=== PATIENT | male | born 1935 | race Caucasian/White ===

== ENCOUNTER 2017-01-30 10:03 | Observation (INO) | payer MEDICARE, OTHER ==
[2017-01-30] MEDS ORDERED: Sodium Chloride 0.9% 1,000 ML IV ONE (10:35)
[2017-01-30 10:43] LABS: CHLORIDE,CL 101 mmol/L (98-107); SODIUM,NA 140 mmol/L (136-145)
--- NOTE | 2017-01-30 10:47 | EDM.PDOC ---
ED HPI GENERAL MEDICAL PROBLEM - General Chief Complaint: Neuro Symptoms/Deficits Stated Complaint: nausea, vomiting, dizzyness Time Seen by Provider: 01/30/17 10:10 Source of Information: Reports: Patient, Family () History Limitations: Reports: No Limitations - History of Present Illness INITIAL COMMENTS - FREE TEXT/NARRATIVE: Patient is a 82-year-old who had gone this morning to [employer] and while in [employer] he felt like the pew was doing like a see saw. he got up and left he went to the bookkeeper receptionist area and sat down and was trying to vomit but only had a small emesis coffee color particles. Patient was also diaphoretic and dizzy at that time patient was seen by Justin COYLE and told the family to bring him to the emergency room while in the emergency room patient was very dizzy his tongue was deviated to the left and he was diaphoretic a stat CT was done which appears to have no intracranial bleed by myself radiology report pending at this time patient is recovering quite fast he had none of he had no drift he was alert and oriented strength was equal bilaterally at present time he feels rundown as a dull feeling in the frontal area of his head bilaterally running down towards his nose but seems to have been recovering his NIH scale at present time is 0 the original one was done about 10 minutes ago and this was also 0. Onset: Today, Sudden Duration: Minutes:, Improving Location: Reports: Head, Generalized Quality: Reports: Dull, Pressure (Forehead) Severity: Severe (Question stroke) Improves with: Reports: Rest Worsens with: Reports: Movement Context: Reports: Sick Contact Associated Symptoms: Reports: Diaphoresis, Headaches, Nausea/Vomiting, Weakness - Related Data Allergies Allergy/AdvReac Type Severity Reaction Status Date / Time No Known Allergies Allergy Verified 01/30/17 10:45 Home Meds: Home Meds Aspirin [Halfprin] 81 mg PO BRK 01/30/17 [History] Budesonide [Pulmicort] 4 ml IH BID 01/30/17 [History] Chlorthalidone 25 mg PO DAILY 01/30/17 [History] Finasteride [Finasteride] 5 mg PO DAILY 01/30/17 [History] Quinapril HCl [Accupril] 40 mg PO DAILY 01/30/17 [History] Simvastatin [Zocor] 40 mg PO DAILY 01/30/17 [History] Sotalol HCl [Betapace] 120 mg PO DAILY 01/30/17 [History] ED ROS GENERAL - Review of Systems Review Of Systems: See Below Constitutional: Reports: Weakness, Diaphoresis HEENT: Reports: Glasses, Vertigo Respiratory: Reports: No Symptoms Cardiovascular: Reports: Lightheadedness Endocrine: Reports: No Symptoms GI/Abdominal: Reports: Nausea, Vomiting : Reports: No Symptoms Musculoskeletal: Reports: No Symptoms Skin: Reports: No Symptoms Neurological: Reports: Dizziness, Difficulty Walking, Weakness Psychiatric: Reports: No Symptoms ED EXAM, GENERAL - Physical Exam Exam: See Below Exam Limited By: No Limitations General Appearance: Alert, WD/WN, Mild Distress Eye Exam: Bilateral Eye: EOMI, PERRL Ears: Hearing Grossly Normal Nose: Normal Inspection, Normal Mucosa, No Blood Head: Atraumatic, Normocephalic Neck: Normal Inspection, Supple, Non-Tender, Full Range of Motion Respiratory/Chest: No Respiratory Distress, Lungs Clear, Normal Breath Sounds, No Accessory Muscle Use, Chest Non-Tender Cardiovascular: Systolic Murmur, Irregularly Irregular, Other (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 No: No Murmur GI/Abdominal: Normal Bowel Sounds, Soft, Non-Tender, No Organomegaly, No Distention, No Abnormal Bruit, No Mass (Male) Exam: Deferred Rectal (Males) Exam: Deferred Back Exam: Normal Inspection, Full Range of Motion, NT Extremities: Normal Inspection, Normal Range of Motion, Non-Tender, Normal Capillary Refill, No Pedal Edema Neurological: Alert, Oriented, CN II-XII Intact, Normal Cognition, Normal Gait, Normal Reflexes, No Motor/Sensory Deficits Psychiatric: Normal Affect, Normal Mood Skin Exam: Warm, Dry, Intact, Normal Color, No Rash Course - Vital Signs Last Recorded V/S: Last Vital Signs Temp 97.2 F 01/30/17 10:05 Pulse 96 01/30/17 10:05 Resp 20 01/30/17 10:05 BP 175/105 H 01/30/17 10:05 Pulse Ox 99 01/30/17 10:05 - Orders/Labs/Meds Orders: Active Orders 24 hr Category Date Time Status Head wo Cont [CT] Routine Exams 01/30/17 Taken Labs: Laboratory Tests 01/30/17 01/30/17 01/30/17 Range/Units 10:15 10:15 10:15 WBC 7.3 (4.0-10.2) K/uL RBC 4.28 L (4.33-5.41) M/uL Hgb 13.8 (13.1-16.8) g/dL Hct 40.8 (39.0-49.0) % MCV 95.3 (84.0-98.0) fL MCH 32.2 (28.2-33.3) pg MCHC 33.8 (31.7-36.0) g/dL RDW 13.0 (11.2-14.1) % Plt Count 228 (150-350) K/uL Neut % (Auto) 58.4 (45.0-80.0) % Lymph % (Auto) 24.1 (10.0-50.0) % Barry % (Auto) 14.6 H (2.0-14.0) % Eos % (Auto) 2.6 (0.0-5.0) % Baso % (Auto) 0.3 (0.0-2.0) % Neut # (Auto) 4.23 (1.40-7.00) K/uL Lymph # (Auto) 1.75 (0.50-3.50) K/uL Barry # (Auto) 1.06 H (0.00-1.00) K/uL Eos # (Auto) 0.19 (0.00-0.50) K/uL Baso # (Auto) 0.02 (0.00-0.20) K/uL PT 22.7 H D (9.8-11.7) SEC INR 2.0 APTT 32.9 H (23.5-30.0) SEC D-Dimer, Quantitative < 100 (0-400) ng/mL Sodium (136-145) mmol/L Potassium (3.5-5.1) mmol/L Chloride (98-107) mmol/L Carbon Dioxide (21.0-32.0) mmol/L BUN (7-18) mg/dL Creatinine (0.51-1.17) mg/dL Est Cr Clr Drug Dosing Estimated GFR (MDRD) mL/min Glucose (74-106) mg/dL Calcium (8.5-10.1) mg/dL Total Bilirubin (0.2-1.0) mg/dL AST (15-37) U/L ALT (12-78) U/L Alkaline Phosphatase (46-116) IU/L Troponin I (0.000-0.056) ng/mL Total Protein (6.4-8.2) g/dL Albumin (3.4-5.0) g/dL 01/30/17 Range/Units 10:15 WBC (4.0-10.2) K/uL RBC (4.33-5.41) M/uL Hgb (13.1-16.8) g/dL Hct (39.0-49.0) % MCV (84.0-98.0) fL MCH (28.2-33.3) pg MCHC (31.7-36.0) g/dL RDW (11.2-14.1) % Plt Count (150-350) K/uL Neut % (Auto) (45.0-80.0) % Lymph % (Auto) (10.0-50.0) % Barry % (Auto) (2.0-14.0) % Eos % (Auto) (0.0-5.0) % Baso % (Auto) (0.0-2.0) % Neut # (Auto) (1.40-7.00) K/uL Lymph # (Auto) (0.50-3.50) K/uL Barry # (Auto) (0.00-1.00) K/uL Eos # (Auto) (0.00-0.50) K/uL Baso # (Auto) (0.00-0.20) K/uL PT (9.8-11.7) SEC INR APTT (23.5-30.0) SEC D-Dimer, Quantitative (0-400) ng/mL Sodium 140 (136-145) mmol/L Potassium 3.0 L (3.5-5.1) mmol/L Chloride 101 (98-107) mmol/L Carbon Dioxide 29.2 (21.0-32.0) mmol/L BUN 20 H (7-18) mg/dL Creatinine 1.18 H (0.51-1.17) mg/dL Est Cr Clr Drug Dosing TNP Estimated GFR (MDRD) 59 mL/min Glucose 167 H (74-106) mg/dL Calcium 8.8 (8.5-10.1) mg/dL Total Bilirubin 1.4 H (0.2-1.0) mg/dL AST 23 (15-37) U/L ALT 20 (12-78) U/L Alkaline Phosphatase 70 (46-116) IU/L Troponin I 0.000 (0.000-0.056) ng/mL Total Protein 7.5 (6.4-8.2) g/dL Albumin 3.9 (3.4-5.0) g/dL Departure - Departure Time of Disposition: 12:22 Disposition: Refer to Observation Condition: Fair Clinical Impression: TIA (transient ischemic attack) - Discharge Information Forms: ED Department Discharge - Problem List & Annotations (1) Syncopal vertigo SNOMED Code(s): 794931974 Code(s): R55 - SYNCOPE AND COLLAPSE; R42 - DIZZINESS AND GIDDINESS Status: Acute Annotation/Comment:: Patient will be admitted for observation and workup including telemetry echocardiogram and observation (2) TIA (transient ischemic attack) SNOMED Code(s): 957807272 Code(s): G45.9 - TRANSIENT CEREBRAL ISCHEMIC ATTACK, UNSPECIFIED Status: Acute - Problem List Review Problem List Initiated/Reviewed/Updated: Yes - My Orders Last 24 Hours: My Active Orders 01/30/17 Head wo Cont [CT] Routine - Assessment/Plan Last 24 Hours: My Active Orders 01/30/17 Head wo Cont [CT] Routine
[2017-01-30] MEDS ORDERED: Warfarin 2 MG Tab PO SCH (20:00)
[2017-01-30] MEDS ORDERED: Simvastatin 20 MG Tab PO SCH (20:00)
[2017-01-31] MEDS ORDERED: QUINAPRIL 40 MG PO SCH (08:00)
[2017-01-31] MEDS ORDERED: Finasteride 5 MG Tab PO SCH (08:00)
[2017-01-31] MEDS ORDERED: Chlorthalidone 25 MG Tab PO SCH (08:00)
[2017-01-31] MEDS ORDERED: Simvastatin 20 MG Tab PO SCH (08:00)
[2017-01-31] MEDS ORDERED: SIMVASTATIN 40 MG PO SCH (08:00)
[2017-01-31] MEDS ORDERED: Aspirin 81 MG Tab.EC PO SCH (08:00)
[2017-01-31] MEDS ORDERED: Sotalol 80 MG Tab PO SCH ×2 (08:00)
[2017-01-31] MEDS ORDERED: Budesonide 0.5 MG/2 ML Neb Susp NEB SCH (08:00)
[2017-01-31 08:01] LABS: CHLORIDE,CL 103 mmol/L (98-107); SODIUM,NA 140 mmol/L (136-145)
--- NOTE | 2017-01-31 11:12 | PCM.DCSUM1 ---
Discharge Summary - Hospital Course Free Text/Narrative:: And admitted to the hospital secondary to a near syncopal episode at [facility] patient worked up including troponins which were negative at this time patient is doing much better we'll continue with workup Cardilate stress test echocardiogram and carotid ultrasound will try to get as much as we can now and the rest as an outpatient Brief History: Patient is a 82-year-old was admitted with near syncopal episode while in [facility] he noticed that the room was going in circles and his pedal was doing like a seesaw he walked out and waited in the waiting area for his Justin Patel the PA was there and told him to go to the hospital patient was loaded up in the car and brought to the hospital at this time patient admitted and worked up for cardiac events which were all negative proceed with outpatient workup - Discharge Data Discharge Date: 01/31/17 Discharge Disposition: Home, Self-Care 01 Condition: Good - Discharge Diagnosis/Problem(s) (1) Syncopal vertigo SNOMED Code(s): 476491903 ICD Code: R55 - SYNCOPE AND COLLAPSE; R42 - DIZZINESS AND GIDDINESS Status : Acute Current Visit: Yes Problem Details: Patient seen today doing much better we'll discharge home with orders for cardiac echo carotid ultrasound and Cardiolite stress test (2) TIA (transient ischemic attack) SNOMED Code(s): 181243300 ICD Code: G45.9 - TRANSIENT CEREBRAL ISCHEMIC ATTACK, UNSPECIFIED Status: Acute Current Visit: Yes - Patient Instructions Diet: Heart Healthy Diet Activity: Rest and Relax Today Driving: Do Not Drive (May drive tomorrow) Showering/Bathing: May Shower - Discharge Plan Home Medications: Home Meds Aspirin [Halfprin] 81 mg PO BRK 01/30/17 [History] Budesonide [Pulmicort] 4 ml IH BID 01/30/17 [History] Chlorthalidone 25 mg PO DAILY 01/30/17 [History] Finasteride [Finasteride] 5 mg PO DAILY 01/30/17 [History] Multivitamin [Multiple Vitamins] 1 each PO 01/30/17 [History] Quinapril HCl [Accupril] 40 mg PO DAILY 01/30/17 [History] Simvastatin [Zocor] 40 mg PO DAILY 01/30/17 [History] Sotalol [Betapace] 40 mg PO DAILY 01/30/17 [History] Ubidecarenone [Coq10] 100 mg PO DAILY 01/30/17 [History] Warfarin Sodium [Coumadin] 4 mg PO DAILY 01/30/17 [History] Forms: ED Department Discharge Referrals: PCP,Unknown [Primary Care Provider] - - General Info Date of Service: 01/31/17 - Review of Systems General: Reports: No Symptoms HEENT: Reports: No Symptoms Pulmonary: Reports: No Symptoms Cardiovascular: Reports: No Symptoms Gastrointestinal: Reports: No Symptoms Genitourinary: Reports: No Symptoms Musculoskeletal: Reports: No Symptoms Skin: Reports: No Symptoms Neurological: Reports: No Symptoms Psychiatric: Reports: No Symptoms - Patient Data Vitals - Most Recent: Last Vital Signs Temp 97.4 F 01/31/17 08:00 Pulse 66 01/31/17 08:56 Resp 17 01/31/17 08:00 BP 132/95 H 01/31/17 08:56 Pulse Ox 97 01/31/17 08:00 Weight - Most Recent: 194 lb 0.003 oz I&O - Last 24 hours: Intake & Output 01/30/17 01/31/17 01/31/17 22:59 06:59 14:59 Intake Total 520 Balance 520 Lab Results - Last 24 hrs: Laboratory Results - last 24 hr 01/30/17 01/31/17 01/31/17 Range/Units 22:00 07:05 07:05 WBC 6.9 (4.0-10.2) K/uL RBC 3.96 L (4.33-5.41) M/uL Hgb 12.8 L (13.1-16.8) g/dL Hct 38.4 L (39.0-49.0) % MCV 97.0 (84.0-98.0) fL MCH 32.3 (28.2-33.3) pg MCHC 33.3 (31.7-36.0) g/dL RDW 13.0 (11.2-14.1) % Plt Count 198 (150-350) K/uL Neut % (Auto) 67.8 (45.0-80.0) % Lymph % (Auto) 16.5 (10.0-50.0) % Cole % (Auto) 13.6 (2.0-14.0) % Eos % (Auto) 2.0 (0.0-5.0) % Baso % (Auto) 0.1 (0.0-2.0) % Neut # (Auto) 4.66 (1.40-7.00) K/uL Lymph # (Auto) 1.14 (0.50-3.50) K/uL Cole # (Auto) 0.94 (0.00-1.00) K/uL Eos # (Auto) 0.14 (0.00-0.50) K/uL Baso # (Auto) 0.01 (0.00-0.20) K/uL Sodium 140 (136-145) mmol/L Potassium 3.3 L (3.5-5.1) mmol/L Chloride 103 (98-107) mmol/L Carbon Dioxide 29.7 (21.0-32.0) mmol/L BUN 14 (7-18) mg/dL Creatinine 1.05 (0.51-1.17) mg/dL Est Cr Clr Drug Dosing 60.65 mL/min Estimated GFR (MDRD) > 60 mL/min Glucose 112 H (74-106) mg/dL Calcium 8.7 (8.5-10.1) mg/dL Troponin I 0.013 (0.000-0.056) ng/mL 01/31/17 Range/Units 07:05 WBC (4.0-10.2) K/uL RBC (4.33-5.41) M/uL Hgb (13.1-16.8) g/dL Hct (39.0-49.0) % MCV (84.0-98.0) fL MCH (28.2-33.3) pg MCHC (31.7-36.0) g/dL RDW (11.2-14.1) % Plt Count (150-350) K/uL Neut % (Auto) (45.0-80.0) % Lymph % (Auto) (10.0-50.0) % Cole % (Auto) (2.0-14.0) % Eos % (Auto) (0.0-5.0) % Baso % (Auto) (0.0-2.0) % Neut # (Auto) (1.40-7.00) K/uL Lymph # (Auto) (0.50-3.50) K/uL Cole # (Auto) (0.00-1.00) K/uL Eos # (Auto) (0.00-0.50) K/uL Baso # (Auto) (0.00-0.20) K/uL Sodium (136-145) mmol/L Potassium (3.5-5.1) mmol/L Chloride (98-107) mmol/L Carbon Dioxide (21.0-32.0) mmol/L BUN (7-18) mg/dL Creatinine (0.51-1.17) mg/dL Est Cr Clr Drug Dosing mL/min Estimated GFR (MDRD) mL/min Glucose (74-106) mg/dL Calcium (8.5-10.1) mg/dL Troponin I 0.015 (0.000-0.056) ng/mL Med Orders - Current: Current Medications Aspirin (Halfprin) 81 mg PO BRK [facility] Last Admin: 01/31/17 09:00 Dose: Not Given Budesonide (Pulmicort) 0.5 mg NEB BIDRT [facility] Last Admin: 01/31/17 09:00 Dose: Not Given Chlorthalidone (Chlorthalidone) 25 mg PO DAILY [facility] Last Admin: 01/31/17 08:58 Dose: 25 mg Finasteride (Proscar) 5 mg PO DAILY [facility] Last Admin: 01/31/17 08:57 Dose: 5 mg Quinapril 40mg Tabs 1 each PO DAILY [facility] Last Admin: 01/31/17 08:57 Dose: 1 each Simvastatin 40mg (Tabs) 1 each PO DAILY [facility] Last Admin: 01/31/17 08:58 Dose: 1 each Warfarin 4mg Tabs 1 each PO DAILY@1800 [facility] Sotalol HCl (Betapace) 40 mg PO DAILY [facility] Last Admin: 01/31/17 08:56 Dose: 40 mg Discontinued Medications Quinapril HCl (Accupril) 40 mg PO DAILY [facility] Last Admin: 01/31/17 09:46 Dose: Not Given Simvastatin (Zocor) 40 mg PO DAILY [facility] Last Admin: 01/31/17 09:46 Dose: Not Given Sotalol HCl (Betapace) 120 mg PO DAILY [facility] Last Admin: 01/31/17 09:46 Dose: Not Given Warfarin Sodium (Coumadin) 4 mg PO DAILY [facility] Warfarin Sodium (Coumadin) 4 mg PO DAILY@1800 [facility] - Exam General: Reports: Alert, Oriented HEENT: Reports: Pupils Equal, Pupils Reactive, EOMI, Mucous Membr. Moist/[place] Neck: Reports: Supple Lungs: Reports: Clear to Auscultation, Normal Respiratory Effort Cardiovascular: Reports: Regular Rate, Regular Rhythm GI/Abdominal Exam: Normal Bowel Sounds, Soft, Non-Tender, No Organomegaly, No Distention, No Abnormal Bruit, No Mass, Pelvis Stable Rectal (Males) Exam: Deferred Back Exam: Reports: Normal Inspection, Full Range of Motion Extremities: Normal Inspection, Normal Range of Motion, Non-Tender, No Pedal Edema, Normal Capillary Refill Skin: Reports: Warm, Dry, Intact Neurological: Reports: No New Focal Deficit Psy/Mental Status: Reports: Alert, Normal Affect, Normal Mood *Q Meaningful Use (DIS) - VTE *Q VTE Criteria *Q: - Stroke *Q Stroke Criteria *Q: - AMI *Q AMI Criteria *Q:
[2017-01-31 14:09] VITALS: BP 137/94
[2017-01-31] MEDS ORDERED: Warfarin 2 MG Tab PO SCH (18:00)
[2017-01-31] MEDS ORDERED: WARFARIN 4 MG PO SCH (18:00)
== END 2017-01-31 14:25 | disposition home or self-care (01) ==
LOC: LL.ED 10:03 → LL.MS 11:45
PROVIDERS: ADMIT Family Medicine; ATTEND Family Medicine
DX: R55 Syncope and collapse (principal); G45.9 Transient cerebral ischemic attack, unspecified; I10 Essential (primary) hypertension; E78.00 Pure hypercholesterolemia, unspecified; J44.9 Chronic obstructive pulmonary disease, unspecified; Z95.2 Presence of prosthetic heart valve; Z79.82 Long term (current) use of aspirin; Z79.01 Long term (current) use of anticoagulants; Z79.899 Other long term (current) drug therapy; Z87.891 Personal history of nicotine dependence; Z90.89 Acquired absence of other organs
CPT/HCPCS: 36415; 70450; 71020; 80048; 80053; 82271; 84484; 85025; 85379; 85610; 85730; 93880; 96360; 99285; A9270; J7030; G0378